=== PATIENT | male | born 1990 | race Caucasian/White ===

== ENCOUNTER → 2019-06-22 | Emergency (ER) | payer SELFPAY ==
[~2019-06-22] VITALS: Ht 172.7 cm; Wt 72.6 kg
[~2019-06-22] MED LIST: CYCLOBENZAPRINE10 MG PO
--- OUTSIDE RECORDS SUMMARY | ~2019-06-22 | XMS | Clinical Summary ---
Demographics + + + | Address | [address] | | | [place] [address] | + + + | Home Phone | | + + + | Preferred Language | Unknown | + + + | Marital Status | Single | + + + | Worship Affiliation | Unknown | + + + | Race | Unknown | + + + | Ethnic Group | Unknown | + + + Author + + + | Author | [facility] | | | and [place] | + + + | Organization | [facility] | | | and [place] | + + + | Address | Unknown | + + + | Phone | Unavailable | + + + Support + + +---------+ + | Name | Relationship | Address | Phone | + + +---------+ + | CEE FOSTER | ECON | Unknown | | + + +---------+ + Care Team Providers + +------+ + | Care Campus Dean Name | Role | Phone | + [...]
--- OUTSIDE RECORDS SUMMARY | ~2019-06-22 | XMS | Clinical Summary ---
Demographics + + + | Address | [address] | | | [place] [address] | + + + | Home Phone | | + + + | Preferred Language | Unknown | + + + | Marital Status | Single | + + + | Roman Catholic Affiliation | Unknown | + + + | Race | Unknown | + + + | Ethnic Group | Unknown | + + + Author + + + | Author | [facility] | | | and [place] | + + + | Organization | [facility] | | [...] Team Providers + +------+ + | Care Voltmeter Operator Name | Role | Phone | [...]
== END ==
LOC: ED 22:21
DX: S01.81XA Laceration without foreign body of other part of head, initial encounter (principal); V00.131A Fall from skateboard, initial encounter; F17.200 Nicotine dependence, unspecified, uncomplicated
CPT/HCPCS: 12001; 90471; 90715; 99283

== ENCOUNTER 2019-07-01 21:41 | Emergency (ER) | payer SELFPAY ==
[~2019-07-01] VITALS: Ht 172.7 cm; Wt 72.6 kg
--- OUTSIDE RECORDS SUMMARY | ~2019-07-01 | XMS | Encounter Summary ---
Demographics + + + | Address | [address] | | | [place] [address] | + + + | Home Phone | | + + + | Preferred Language | Unknown | + + + | Marital Status | Single | + + + | Mormon Affiliation | Unknown | + + + | Race | Unknown | + + + | Ethnic Group | Unknown | + + + Author + + + | Author | [facility] | | | and [place] | + + + | Organization | [facility] | | | and [place] | + + + | Address | Unknown | + + + | Phone | Unavailable | + + + Support + + +---------+ + | Name | Relationship | Address | Phone | + + +---------+ + | Suzan Ferreira | ECON | Unknown | | + + +---------+ + Care Team Providers + +------+ + | Care Glazier Artist Name | Role | Phone | + +------+ + PCP | Unavailable | + +------+ + Encounter Details +--------+ + + + + | Date | Type | Department | Care Team | Description | +--------+ + + + + | 05/03/ | Hospital | [facility] | Steve Hansen, | | | 2002 - | Encounter | FAMILY EMERGENCY | [address] | | | | [place] [address] | [facility] | | | 05/04/ | | [facility] | [place] [address] | | | 2002 | | [place] | [phone] | | | | | [address] | | | | | | [phone] | | | +--------+ + + + + Social History + +-------+ +--------+------+ | Tobacco Use | Types | Packs/Day | Years | Date | | | | | Used | | + +-------+ +--------+------+ | Never Assessed | | | | | + +-------+ +--------+------+ + + + | Sex Assigned at | Date Recorded | | | | + + + | Not on file | | + + + + + + + | Job Start Date | Occupation | Industry | + + + + | Not on file | Not on file | Not on file | + + + + + + + + | Travel History | Travel Start | Travel End | + + + + + + | No recent travel history available. | + + documented as of this encounter Plan of Treatment Not on filedocumented as of this encounter Visit Diagnoses Not on filedocumented in this encounter"
--- OUTSIDE RECORDS SUMMARY | ~2019-07-01 | XMS | Encounter Summary ---
Demographics + + + | Address | [address] | | | [place] [address] | + + + | Home Phone | | + + + | Preferred Language | Unknown | + + + | Marital Status | Single | + + + | Jew Affiliation | Unknown | + + + | Race | Unknown | + + + | Ethnic Group | Unknown | + + + Author + + + | Author | [facility] | | | and [place] | + + + | Organization | [facility] | | | and [...] Team Providers + +------+ + | Care Explosives Detonator Name | Role | Phone | + +------+ + PCP | Unavailable | + +------+ + Encounter Details +--------+ + + + + | Date | Type | Department | Care Team | Description | +--------+ + + + + | 08/09/ | Hospital | [facility] | Alia Cazares | | | 2001 | Encounter | [facility] | MD [address] | | | | | GENERIC CONV DEPT | [address] | | | | | [address] | [place] [address] | | | | | [place] | [phone] | | | | | [address] | | | | | | [phone] | | | +--------+ + + + [...]
--- OUTSIDE RECORDS SUMMARY | ~2019-07-01 | XMS | Encounter Summary ---
Demographics + + + | Address | [address] | | | [place] [address] | + + + | Home Phone | | + + + | Preferred Language | Unknown | + + + | Marital Status | Single | + + + | Nondenominational Affiliation | Unknown | + + + | Race | Unknown | + + + | Ethnic Group | Unknown | + + + Author + + + | Author | [facility] | | | and [place] | + + + | Organization | [facility] | | | and [...] Team Providers + +------+ + | Care Funds Transfer Clerk Name | Role | Phone | + +------+ + PCP | Unavailable | + +------+ + Encounter Details +--------+ + + + + | Date | Type | Department | Care Team | Description | +--------+ + + + + | 12/22/ | Hospital | [facility] | Dave Sarabia, | | | 2005 | Encounter | FAMILY EMERGENCY | MD [address] | | | | | [place] [address] | [place] [address] | | | | | [place] | [phone] | | | | | [place] | | | | | | [address] | | | | | | [phone] | | | +--------+ + + + [...]
--- OUTSIDE RECORDS SUMMARY | ~2019-07-01 | XMS | Encounter Summary ---
Demographics + + + | Address | [address] | | | [place] [address] | + + + | Home Phone | | + + + | Preferred Language | Unknown | + + + | Marital Status | Single | + + + | Confucianism Affiliation | Unknown | + + + | Race | Unknown | + + + | Ethnic Group | Unknown | + + + Author + + + | Author | [facility] | | | and [place] | + + + | Organization | [facility] | | | and [...] Team Providers + +------+ + | Care Buzzsaw Operator Name | Role | Phone | + +------+ + PCP | Unavailable | + +------+ + Encounter Details +--------+ + + + + | Date | Type | Department | Care Team | Description | +--------+ + + + + | 01/15/ | Hospital | [facility] | Cortes Ervin MD | | | 1996 | Encounter | [facility] | [address] [facility] | | | | | CENTER [address] [place] | | | | | [place] | [address] | | | | | [place] | | | | | | [address] | | | | | | [phone] | | | +--------+ + + + [...]
--- OUTSIDE RECORDS SUMMARY | ~2019-07-01 | XMS | Encounter Summary ---
Demographics + + + | Address | [address] | | | [place] [address] | + + + | Home Phone | | + + + | Preferred Language | Unknown | + + + | Marital Status | Single | + + + | Judaism Affiliation | Unknown | + + + | Race | Unknown | + + + | Ethnic Group | Unknown | + + + Author + + + | Author | [facility] | | | and [place] | + + + | Organization | [facility] | | [...] Team Providers + +------+ + | Care Detention Sergeant Name | Role | Phone | + +------+ + PCP | Unavailable | + +------+ + Encounter Details +--------+ + + + + | Date | Type | Department | Care Team | Description | +--------+ + + + + | 01/03/ | Hospital | [facility] | Raz Amador | | | 2005 | Encounter | FAMILY EMERGENCY | MD [address] | | | | | [place] [address] | [facility] | | | | | [facility] | [address] [place] | | | | | [place] | [address] | | | | | [address] | [phone] | | | | | [phone] | | | +--------+ + + + [...]
--- OUTSIDE RECORDS SUMMARY | ~2019-07-01 | XMS | Encounter Summary ---
Demographics + + + | Address | [address] | | | [place] [address] | + + + | Home Phone | | + + + | Preferred Language | Unknown | + + + | Marital Status | Single | + + + | Caodaism Affiliation | Unknown | + + + | Race | Unknown | + + + | Ethnic Group | Unknown | + + + Author + + + | Author | [facility] | | | and [place] | + + + | Organization | [facility] | | [...] Team Providers + +------+ + | Care Nurse Epidemiologist Name | Role | Phone | + +------+ + PCP | Unavailable | + +------+ + Encounter Details +--------+ + + + + | Date | Type | Department | Care Team | Description | +--------+ + + + + | 06/03/ | Hospital | [facility] | Raz Amador | | | 2005 | Encounter | FAMILY EMERGENCY | MD [address] | | | | | [place] [address] | [facility] | | | | | [facility] | [address] [place] | | | | | [place] | [address] | | | | | [address] | [phone] | | | | | [phone] | | | +--------+ + + + [...]
--- OUTSIDE RECORDS SUMMARY | ~2019-07-01 | XMS | Encounter Summary ---
Demographics + + + | Address | [address] | | | [place] [address] | + + + | Home Phone [...] + + + | Author | [facility] | | | and [place] | + + + | Organization | [facility] | | | [...] Team Providers + +------+ + | Care Neurology Epilepsy Physician Name | Role | Phone | + [...] [address] | | | | | [place] [address] | [facility] | | | | | [facility] | [address] [place] | | | | | [place] | [address] | | | | | [address] | [phone] | | | | | [phone] | | | +--------+ + + + [...]
--- OUTSIDE RECORDS SUMMARY | ~2019-07-01 | XMS | Encounter Summary ---
Demographics + + + | Address | [address] | | | [place] [address] | + + + | Home Phone | | + + + | Preferred Language | Unknown | + + + | Marital Status | Single | + + + | Mormonism Affiliation | Unknown | + + + | Race | Unknown | + + + | Ethnic Group | Unknown | + + + Author + + + | Author | [facility] | | | and [place] | + + + | Organization | [facility] | | [...] Providers + +------+ + | Care Funds Development Director Name | Role | Phone | + +------+ + PCP | Unavailable | + +------+ + Encounter Details +--------+ + + + + | Date | Type | Department | Care Team | Description | +--------+ + + + + | 09/06/ | Hospital | [facility] | Fantasma Mclaughlin MD | | | 1997 | Encounter | [facility] | [address] [facility] | | | | | CONVERSION | [address] | | | | | DEPART[address] | [place] [address] | | | | | [place] | [phone] | | | | | [place] | | | | | | [address] | | | | | | [phone] | | | +--------+ + + + [...]
--- OUTSIDE RECORDS SUMMARY | ~2019-07-01 | XMS | Encounter Summary ---
Demographics + + + | Address | [address] | | | [place] [address] | + + + | Home Phone | | + + + | Preferred Language | Unknown | + + + | Marital Status | Single | + + + | Anglican Affiliation | Unknown | + + + | Race | Unknown | + + + | Ethnic Group | Unknown | + + + Author + + + | Author | [facility] | | | and [place] | + + + | Organization | [facility] | | | [...] Team Providers + +------+ + | Care Management Trainee Program Stores Name | Role | Phone | + +------+ + PCP | Unavailable | + +------+ + Encounter Details +--------+ + + + + | Date | Type | Department | Care Team | Description | +--------+ + + + + | 08/09/ | Hospital | [facility] | Alia Cazares | | | 2001 | Encounter | [facility] MED CTR | MD [address] | | | | | GENERIC CONV DEPT | [address] | | | | | [address] | [place] [address] | | | | | [place] | [phone] | | | | | [address] | | | | | | [phone] | | | +--------+ + + + [...]
--- OUTSIDE RECORDS SUMMARY | ~2019-07-01 | XMS | Encounter Summary ---
Demographics + + + | Address | [address] | | | [place] [address] | + + + | Home Phone | | + + + | Preferred Language | Unknown | + + + | Marital Status | Single | + + + | Anabaptist Affiliation | Unknown | + + + | Race | Unknown | + + + | Ethnic Group | Unknown | + + + Author + + + | Author | [facility] | | | and [place] | + + + | Organization | [facility] | | [...] Team Providers + +------+ + | Care Cad Librarian Name | Role | Phone | + +------+ + PCP | Unavailable | + +------+ + Encounter Details +--------+ + + + + | Date | Type | Department | Care Team | Description | +--------+ + + + + | 01/15/ | Hospital | [facility] | Cortes Ervin MD | | | 1996 | Encounter | [facility] | [address] [facility] | | | | | CENTER [address] [place] | | | | | [place] | [address] | | | | | [place] | | | | | | [address] | | | | | | [phone] | | | +--------+ + + + [...]
--- OUTSIDE RECORDS SUMMARY | ~2019-07-01 | XMS | Encounter Summary ---
Demographics + + + | Address | [address] | | | [place] [address] | + + + | Home Phone | | + + + | Preferred Language | Unknown | + + + | Marital Status | Single | + + + | Jehovah'S Witness Affiliation | Unknown | + + + | Race | Unknown | + + + | Ethnic Group | Unknown | + + + Author + + + | Author | [facility] | | | and [place] | + + + | Organization | [facility] | | | [...] Team Providers + +------+ + | Care Office Assistant Receptionist Name | Role | Phone | + +------+ + PCP | Unavailable | + +------+ + Encounter Details +--------+ + + + + | Date | Type | Department | Care Team | Description | +--------+ + + + + | 11/07/ | Hospital | [facility] | Fantasma Mclaughlin MD | | | 2001 | Encounter | [facility] [address] | [address] [facility] | | | | | [place] | [address] | | | | | [place] | [place] [address] | | | | | [address] | [phone] | | | | | [phone] | | | +--------+ + + + [...]
--- OUTSIDE RECORDS SUMMARY | ~2019-07-01 | XMS | Encounter Summary ---
Demographics + + + | Address | [address] | | | [place] [address] | + + + | Home Phone | | + + + | Preferred Language | Unknown | + + + | Marital Status | Single | + + + | Mormon Affiliation | Unknown | + + + | Race | Unknown | + + + | Ethnic Group | Unknown | + + + Author + + + | Author | [facility] | | | and [place] | + + + | Organization | [facility] | | [...] Team Providers + +------+ + | Care Energy Risk Management Analyst Name | Role | Phone | + +------+ + PCP | Unavailable | + +------+ + Encounter Details +--------+ + + + + | Date | Type | Department | Care Team | Description | +--------+ + + + + | 01/05/ | Hospital | [facility] | Fantasma Mclaughlin MD | | | 1998 | Encounter | [facility] [address] | [address] [facility] | | | | | [place] | [address] | | | | | [place] | [place] [address] | | | | | [address] | [phone] | | | | | [phone] | | | +--------+ + + + [...]
--- OUTSIDE RECORDS SUMMARY | ~2019-07-01 | XMS | Encounter Summary ---
Demographics + + + | Address | [address] | | | [place] [address] | + + + | Home Phone | | + + + | Preferred Language | Unknown | + + + | Marital Status | Single | + + + | Adventism Affiliation | Unknown | + + + | Race | Unknown | + + + | Ethnic Group | Unknown | + + + Author + + + | Author | [facility] | | | and [place] | + + + | Organization | [facility] | | | [...] Team Providers + +------+ + | Care Slasher Runner Name | Role | Phone | + +------+ + PCP | Unavailable | + +------+ + Encounter Details +--------+ + + + + | Date | Type | Department | Care Team | Description | +--------+ + + + + | 05/17/ | Hospital | [facility] | Wilmer Burns MD | | | 1999 | Encounter | FAMILY EMERGENCY | [address] | | | | | [place] [address] | [place] | | | | | [place] | [address] | | | | | [place] | | | | | | [address] | | | | | | [phone] | | | +--------+ + + + [...]
--- OUTSIDE RECORDS SUMMARY | ~2019-07-01 | XMS | Encounter Summary ---
Demographics + + + | Address | [address] | | | [place] [address] | + + + | Home Phone | | + + + | Preferred Language | Unknown | + + + | Marital Status | Single | + + + | Methodist Affiliation | Unknown | + + + | Race | Unknown | + + + | Ethnic Group | Unknown | + + + Author + + + | Author | [facility] | | | and [place] | + + + | Organization | [facility] | | | and [...] Team Providers + +------+ + | Care Dining Car Conductor Name | Role | Phone | + +------+ + PCP | Unavailable | + +------+ + Encounter Details +--------+ + + + + | Date | Type | Department | Care Team | Description | +--------+ + + + + | 06/06/ | Hospital | [facility] | River Carrillo, | | | 2002 - | Encounter | FAMILY GENERIC | MD [address] | | | | | CONVERSION | [address] | | | 06/21/ | | DEPARTMENT [address] | [place] [address] | | | [address] | | [address] | [phone] | | | | | [place] | | | | | | [address] | | | | | | [phone] | | | +--------+ + + + [...]
--- OUTSIDE RECORDS SUMMARY | ~2019-07-01 | XMS | Encounter Summary ---
Demographics + + + | Address | [address] | | | [place] [address] | + + + | Home Phone [...] Team Providers + +------+ + | Care Legal Support Specialist Name | Role | Phone | + +------+ + PCP | Unavailable | + +------+ + Encounter Details +--------+ + + + + | Date | Type | Department | Care Team | Description | +--------+ + + + + | 10/31/ | Hospital | [facility] | [place], | | | 2010 | Encounter | [facility] | [address] | | | | | [address] [address] | [address] | | | | | [place] | [facility] | | | | | [place] | [address] | | | | | [address] | | | | | | [phone] | | | +--------+ + + + [...] Not on filedocumented as of this encounter Procedures + +--------+ + + + | Procedure Name | Priori | Date/Time | Associated Diagnosis | Comments | | | ty | | | | + +--------+ + + + | COMPREHENSIVE | Routin | 10/31/2010 | | Results for this | | METABOLIC PANEL, | e | 3:35 PM | | procedure are in the | | PART 2 | | PST | | results section. | + +--------+ + + + | CBC WITH | Routin | 10/31/2010 | | Results for this | | DIFFERENTIAL | e | 3:35 PM | | procedure are in the | | | | PST | | results section. | + +--------+ + + + | LIPASE | Routin | 10/31/2010 | | Results for this | | | e | 3:35 PM | | procedure are in the | | | | PST | | results section. | + +--------+ + + + documented in this encounter Results Lipase (10/31/2010 3:35 PM PST) + + + + + + | Component | Value | Ref Range | Performed | Pathologist | | | | | At | Signature | + + + + + + | Lipase | 107Comment: NOTE NEW | 70 - 350 U/L | [facility] | | | | [facility] | | [facility] | | | | | | [facility] | | + + + + + + + + | Specimen | + + | | + + + + + + + | Performing | Address | City/State/Zipcode | Phone Number | | Organization | | | | + + + + + | [facility] | [address] | [place] [address] | | | [facility] | | | | | [facility]ORY | | | | + + + + + | [facility] | | | | | [facility] | | | | + + + + + Comprehensive Metabolic Panel, Part 2 (10/31/2010 3:35 PM PST) + + + + + + | Component | Value | Ref Range | Performed | Pathologist | | | | | At | Signature | + + + + + + | Na | 139 | 135 - 146 | [facility] | | | | mmol/L [facility] | | | | | | [facility] | | + + + + + + | K | 4.2 | 3.6 - 5.2 | [facility] | | | | | mmol/L | [facility] | | | | | | [facility] | | + + + + + + | Cl | 103 | 98 - 109 mmol/L | [facility] | | | | [facility] | | [facility] | | | [facility] | | + + + + + + | CO2 | 28 | 21 - 32 mmol/L | [facility] | | | [facility] | | | | | | [facility] | | + + + + + + | Glucose | 102 (H)Comment: Impaired | 65 - 99 mg/dL | [facility] | | | | fasting glucose: 100 to | | [facility] | | | | 125 mg/dL. | [facility] | | | | | | [facility]ATORY | | + + + + + + | BUN | 11 | 7 - 23 mg/dL | [facility] | | | [facility] | | | | | | [facility] | | + + + + + + | Creatinine | 0.87 | 0.80 - 1.50 | [facility] | | | | | mg/dL | [facility] | | | | | | [facility] | | + + + + + + | Calcium | 8.7 | 8.5 - 10.5 | [facility] | | | | | mg/dL | [facility] | | | | | | [facility] | | + + + + + + | Total | 8.1 | 6.5 - 8.2 g/dL | [facility] | | | Protein | | | [facility] | | | | | | [facility] | | + + + + + + | Albumin | 3.8 | 3.4 - 5.0 g/dL | [facility] | | | | [facility] | | | | | | [facility] | | + + + + + + | Bilirubin | 0.9 | 0.1 - 1.5 mg/dL | [facility] | | | Total | | | [facility] | | | | | | [facility] | | + + + + + + | Alkaline | 90 | 40 - 135 U/L | [facility] | | | Phosphatase | | | [facility] | | | | | | [facility]ORY | | + + + + + + | AST | 24 | 5 - 40 U/L | [facility] | | | | [facility] | | | | | | [facility] | | + + + + + + | ALT | 45 | 5 - 65 U/L | [facility] | | | | | | [facility] | | + + + + + + | Anion Gap | 8 | 5 - 16 mmol/L | [facility] | | | | | | [facility] | | + + + + + + + + | Specimen | + + | | + + + + + + + | Performing | Address | City/State/Zipcode | Phone Number | | Organization | | | | + + + + + | [facility] | [address] | [place] [address] | | | [facility] | | | | | LABORATORY | | | | + + + + + | [facility] | | | | [facility] | | | | | [facility] | | | | + + + + + CBC with Differential (10/31/2010 3:35 PM PST) + + + + + + | Component | Value | Ref Range | Performed | Pathologist | | | | | At | Signature | + + + + + + | WBC | 10.3 | 4.0 - 11.0 K/uL | [facility] | [facility] | | | [facility] | | + + + + + + | RBC | 4.62 | 4.30 - 5.70 | [facility] | | | | | M/uL | [facility] | | | | | | [facility] | | + + + + + + | Hemoglobin | 14.3 | 13.7 - 16.7 | [facility] | | | | | g/dL | [facility] | | | | | | [facility] | | + + + + + + | Hematocrit | 41.6 | 40.0 - 50.0 % | [facility] | | | [facility] | | [facility] | | | [facility] | | + + + + + + | MCV | 90.2 | 80.0 - 100.0 fL | [facility] | [facility] | [facility] | | | | | | [facility] | | + + + + + + | MCH | 30.9 | 27.0 - 34.0 pg | [facility] | | | [facility] | | | | | | [facility] | | + + + + + + | MCHC | 34.3 | 32.0 - 35.5 | [facility] | | | | | g/dL | [facility] | | | | | | [facility] | | + + + + + + | RDW-CV | 12.6 | 11.0 - 15.0 % | [facility] | | | | [facility] | | | | | | [facility] | | + + + + + + | Platelet | 284 | 150 - 400 K/uL | [facility] | | | Count | | | [facility] | | | [facility] | | [facility] | | + + + + + + | Differentia | Automated | | [facility] | | | l Type | | [facility] | | | | | | [facility] | | + + + + + + | % | 77.5 | 40.0 - 80.0 % | [facility] | | | Neutrophils | | | [facility] | | | | | | [facility] | | + + + + + + | % | 12.9 (L) | 15.0 - 45.0 % | [facility] | | | Lymphocytes | | | [facility] | | | | | | [facility] | | + + + + + + | % Monocytes | 9.4 | 0.0 - 12.0 % | [facility] | | | | [facility] | | | | | | [facility] | | + + + + + + | % | 0.0 | 0 - 7 % | [facility] | | | Eosinophils | | | [facility] | | | | | | [facility] | | + + + + + + | % Basophils | 0.2 | 0 - 2 % | [facility] | | | | [facility] | | | | | | [facility] | | + + + + + + | Absolute | 7.90 (H) | 2.0 - 7.3 K/uL | [facility] | | | Neutrophils | | | [facility] | | | | | | [facility] | | + + + + + + | Absolute | 1.30 | 1.0 - 3.4 K/uL | [facility] | | | Lymphocytes | | | [facility] | | | | | | [facility] | | + + + + + + | Absolute | 1.00 (H) | 0.0 - 0.8 K/uL | [facility] | | | Monocytes | | | [facility] | | | | | | [facility] | | + + + + + + | Absolute | 0.00 | 0.0 - 0.5 K/uL | [facility] | | | Eosinophils | | | [facility] | | | | | | [facility] | | + + + + + + | Absolute | 0.00 | 0.0 - 0.1 K/uL | [facility] | | | Basophils | | | [facility] | | | | | | [facility] | | + + + + + + + + | Specimen | + + | | + + + + + + + | Performing | Address | City/State/Zipcode | Phone Number | | Organization | | | | + + + + + | [facility] | [address] | [place] [address] | | | [facility] | | | | | LAB[facility]ATORY | | | | + + + + + | [facility] | | | | | [facility] | | | | | LAB[facility]ORY | | | | + + + + + documented in this encounter Visit Diagnoses Not on filedocumented in this encounter"
--- OUTSIDE RECORDS SUMMARY | ~2019-07-01 | XMS | Encounter Summary ---
Demographics + + + | Address | [address] | | | [place] [address] | + + + | Home Phone | | + + + | Preferred Language | Unknown | + + + | Marital Status | Single | + + + | Christian Affiliation | Unknown | + + + | Race | Unknown | + + + | Ethnic Group | Unknown | + + + Author + + + | Author | [facility] | | | and [place] | + + + | Organization | [facility] | | | [...] Team Providers + +------+ + | Care Continuous Process Tanner Rotary Drum Name | Role | Phone | + +------+ + PCP | Unavailable | + +------+ + Encounter Details +--------+ + + + + | Date | Type | Department | Care Team | Description | +--------+ + + + + | 10/10/ | Hospital | [facility] | Avinash Mcgraw, | | | 2002 | Encounter | [facility] EM[facility]GENCY | [address] | | | | | [place] [address] | [facility] | | | | | [facility] | [place] [address] | | | | | [place] | [phone] | | | | | [address] | | | | | | [phone] | | | +--------+ + + + [...]
--- OUTSIDE RECORDS SUMMARY | ~2019-07-01 | XMS | Encounter Summary ---
Demographics + + + | Address | [address] | | | [place] [address] | + + + | Home Phone | | + + + | Preferred Language | Unknown | + + + | Marital Status | Single | + + + | Pentecostal Affiliation | Unknown | + + + | Race | Unknown | + + + | Ethnic Group | Unknown | + + + Author + + + | Author | [facility] | | | and [place] | + + + | Organization | [facility] | | | [...] Team Providers + +------+ + | Care Container Finisher Name | Role | Phone | + [...] [address] | | | | | [place] [address] | [facility] | | | 05/04/ | | [facility] | [place] [address] | | | 2002 | | [place] | [phone] | | | | | [address] | | | | | | [phone] | | | +--------+ + + + [...]
--- OUTSIDE RECORDS SUMMARY | ~2019-07-01 | XMS | Encounter Summary ---
Demographics + + + | Address | [address] | | | [place] [address] | + + + | Home Phone | | + + + | Preferred Language | Unknown | + + + | Marital Status | Single | + + + | Mu-Ism Affiliation | Unknown | + + + | Race | Unknown | + + + | Ethnic Group | Unknown | + + + Author + + + | Author | [facility] | | | and [place] | + + + | Organization | [facility] | | | [...] Team Providers + +------+ + | Care Development Scientist Name | Role | Phone | + +------+ + PCP | Unavailable | + +------+ + Encounter Details +--------+ + + + + | Date | Type | Department | Care Team | Description | +--------+ + + + + | 07/06/ | Hospital | [facility] | Pepe Fernandez, | | | 2001 | Encounter | FAM[facility]CHO [address] | [address] | | | | | [facility] | [facility] | | | | | [place] | [address] [place], | | | | | [address] | [place] [address] | | | | | [phone] | [phone] | | | | | | | | +--------+ + + + [...]
--- OUTSIDE RECORDS SUMMARY | ~2019-07-01 | XMS | Clinical Summary ---
Demographics + + + | Address | [address] | | | [place] [address] | + + + | Home Phone | | + + + | Preferred Language | Unknown | + + + | Marital Status | Single | + + + | Sabianist Affiliation | Unknown | + + + | Race | Unknown | + + + | Ethnic Group | Unknown | + + + Author + + + | Author | [facility] | | | and [place] | + + + | Organization | [facility] | | | [...] Team Providers + +------+ + | Care Foundry Process Engineer Name | Role | Phone | + +------+ + PCP | Unavailable | + +------+ + Allergies Not on File Medications Not on file Active Problems Not on file Social History + +-------+ +--------+------+ | Tobacco [...] recent travel history available. | + + Last Filed Vital Signs Not on file Plan of Treatment + + + + + | Health Maintenance | Due Date | Last Done | Comments | + + + + + | Vaccine: | | | | | Dtap/Tdap/Td (1 - | 8 | | | | Tdap) | | | | + + + + + | Vaccine: Influenza | | | | | (#1) | 9 | | | + + + + + Results Not on filefrom Last 3 Months"
--- OUTSIDE RECORDS SUMMARY | ~2019-07-01 | XMS | Encounter Summary ---
Demographics + + + | Address | [address] | | | [place] [address] | + + + | Home Phone | | + + + | Preferred Language | Unknown | + + + | Marital Status | Single | + + + | Scientology Affiliation | Unknown | + + + | Race | Unknown | + + + | Ethnic Group | Unknown | + + + Author + + + | Author | [facility] | | | and [place] | + + + | Organization | [facility] | | | [...] Team Providers + +------+ + | Care Naval Aircrewman Helicopter Name | Role | Phone | + +------+ + PCP | Unavailable | + +------+ + Encounter Details +--------+ + + + + | Date | Type | Department | Care Team | Description | +--------+ + + + + | 09/02/ | Hospital | [facility] | River Carrillo, | | | 2005 - | Encounter | FAM[facility] GENERIC | [place] [address] | | | | | CONVERSION | [address] | | | 09/04/ | | DEPARTMENT [address] | [place] [address] | | | 2005 | | [address] | [phone] | | | | | [place] | | | | | | [address] | | | | | | [phone] | | | +--------+ + + + [...]
--- OUTSIDE RECORDS SUMMARY | ~2019-07-01 | XMS | Encounter Summary ---
Demographics + + + | Address | [address] | | | [place] [address] | + + + | Home Phone | | + + + | Preferred Language | Unknown | + + + | Marital Status | Single | + + + | Anabaptism Affiliation | Unknown | + + + | Race | Unknown | + + + | Ethnic Group | Unknown | + + + Author + + + | Author | [facility] | | | and [place] | + + + | Organization | [facility] | | | [...] Team Providers + +------+ + | Care Television Analyzer Name | Role | Phone | + +------+ + PCP | Unavailable | + +------+ + Encounter Details +--------+ + + + + | Date | Type | Department | Care Team | Description | +--------+ + + + + | 09/06/ | Hospital | [facility] | Fantasma Mclaughlin MD | | | 1997 | Encounter | [facility] | [address] [facility] | | | | | CONVERSION | [address] | | | | | [address]PART[address] | [place] [address] | | | | | [place] | [phone] | | | | | [place] | | | | | | [address] | | | | | | [phone] | | | +--------+ + + + [...]
--- OUTSIDE RECORDS SUMMARY | ~2019-07-01 | XMS | Encounter Summary ---
Demographics + + + | Address | [address] | | | [place] [address] | + + + | Home Phone | | + + + | Preferred Language | Unknown | + + + | Marital Status | Single | + + + | Bahai Affiliation | Unknown | + + + | Race | Unknown | + + + | Ethnic Group | Unknown | + + + Author + + + | Author | [facility] | | | and [place] | + + + | Organization | [facility] | | | and [...] Team Providers + +------+ + | Care Boat Engines Installer Name | Role | Phone | + +------+ + PCP | Unavailable | + +------+ + Encounter Details +--------+ + + + + | Date | Type | Department | Care Team | Description | +--------+ + + + + | 06/09/ | Hospital | [facility] | Rell Fulton MD | | | 2001 | Encounter | FAM[facility] EM[facility]GENCY | [address] | | | | | [place] [address] | [place] [address] | | | | | [address] | [phone] | | | | | [place] | | | | | | [address] | | | | | | [phone] | | | +--------+ + + + [...]
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
--- OUTSIDE RECORDS SUMMARY | ~2019-07-01 | XMS | Encounter Summary ---
Demographics + + + | Address | [address] | | | [place] [address] | + + + | Home Phone | | + + + | Preferred Language | Unknown | + + + | Marital Status | Single | + + + | Restorationism Affiliation | Unknown | + + + [...] Team Providers + +------+ + | Care Internal Audit Consultant Name | Role | Phone | + [...] EMERGENCY | | | | | | [place] [address] | | | | | | [facility] | | | | | | [place] | | | | | | [address] | | | | | | [phone] | | | +--------+ + + + [...]
--- OUTSIDE RECORDS SUMMARY | ~2019-07-01 | XMS | Encounter Summary ---
Demographics + + + | Address | [address] | | | [place] [address] | + + + | Home Phone | | + + + | Preferred Language | Unknown | + + + | Marital Status | Single | + + + | Mandaeism Affiliation | Unknown | + + + | Race | Unknown | + + + | Ethnic Group | Unknown | + + + Author + + + | Author | [facility] | | | and [place] | + + + | Organization | [facility] | | | [...] Team Providers + +------+ + | Care Enterprise Software Developer Name | Role | Phone | + +------+ + PCP | Unavailable | + +------+ + Encounter Details +--------+ + + + + | Date | Type | Department | Care Team | Description | +--------+ + + + + | 07/05/ | Hospital | [facility] | Dave Sarabia, | | | 2001 | Encounter | FAMILY EMERGENCY | [address] | | | | | [place] [address] | [place] [address] | | | | | [place] | [phone] | | | | | [place] | | | | | | [address] | | | | | | [phone] | | | +--------+ + + + [...]
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
--- OUTSIDE RECORDS SUMMARY | ~2019-07-01 | XMS | Encounter Summary ---
Demographics + + + | Address | [address] | | | [place] [address] | + + + | Home Phone | | + + + | Preferred Language | Unknown | + + + | Marital Status | Single | + + + | Amish Affiliation | Unknown | + + + | Race | Unknown | + + + | Ethnic Group | Unknown | + + + Author + + + | Author | [facility] | | | and [place] | + + + | Organization | [facility] | | | [...] Team Providers + +------+ + | Care Senior Recruitment Consultant Name | Role | Phone | [...] [address] | | | | | [place] [address] | [place] [address] | | | | | [place] | [phone] | | | | | [place] | | | | | | [address] | | | | | | [phone] | | | +--------+ + + + [...]
--- OUTSIDE RECORDS SUMMARY | ~2019-07-01 | XMS | Encounter Summary ---
Demographics + + + | Address | [address] | | | [place] [address] | + + + | Home Phone | | + + + | Preferred Language | Unknown | + + + | Marital Status | Single | + + + | Holiness Affiliation | Unknown | + + + | Race | Unknown | + + + | Ethnic Group | Unknown | + + + Author + + + | Author | [facility] | | | and [place] | + + + | Organization | [facility] | | [...] Team Providers + +------+ + | Care Human Resources Manager Name | Role | Phone | + +------+ + PCP | Unavailable | + +------+ + Encounter Details +--------+ + + + + | Date | Type | Department | Care Team | Description | +--------+ + + + + | 12/11/ | Hospital | [facility] | Ricky Sumner MD | | | 2003 | Encounter | [facility] | [address] | | | | | [address] [place] [address] | [place] | | | | | [place] | [address] | | | | | [place] | | | | | | [address] | | | | | | [phone] | | | +--------+ + + + [...]
--- OUTSIDE RECORDS SUMMARY | ~2019-07-01 | XMS | Encounter Summary ---
Demographics + + + | Address | [address] | | | [place] [address] | + + + | Home Phone | | + + + | Preferred Language | Unknown | + + + | Marital Status | Single | + + + | Hoahaoism Affiliation | Unknown | + + + [...] Team Providers + +------+ + | Care Marketing Project Coordinator Name | Role | Phone | + [...] [address] | | | | | [place] [address] | [place] | | | | | [place] | [address] | | | | | [place] | | | | | | [address] | | | | | | [phone] | | | +--------+ + + + [...]
--- OUTSIDE RECORDS SUMMARY | ~2019-07-01 | XMS | Encounter Summary ---
Demographics + + + | Address | [address] | | | [place] [address] | + + + | Home Phone | | + + + | Preferred Language | Unknown | + + + | Marital Status | Single | + + + | Temple Affiliation | Unknown | + + + | Race | Unknown | + + + | Ethnic Group | Unknown | + + + Author + + + | Author | [facility] | | | and [place] | + + + | Organization | [facility] | | | [...] Team Providers + +------+ + | Care Felt Finisher Name | Role | Phone | + +------+ + PCP | Unavailable | + +------+ + Encounter Details +--------+ + + + + | Date | Type | Department | Care Team | Description | +--------+ + + + + | 03/11/ | Hospital | [facility] | Wilmer Burns MD | | | 2006 | Encounter | [facility] | [address] | | | | | [address] | [place] | | | | | [place] | [address] | | | | | [place] | | | | | | [address] | | | | | | [phone] | | | +--------+ + + + [...]
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
--- OUTSIDE RECORDS SUMMARY | ~2019-07-01 | XMS | Encounter Summary ---
Demographics + + + | Address | [address] | | | [place] [address] | + + + | Home Phone [...] + + + | Author | [facility] | | | and [place] | + + + | Organization | [facility] | | | [...] Team Providers + +------+ + | Care Duct Layer Name | Role | Phone | + [...] [address] | | | | | [place] [address] | [place] [address] | | | | | [place] | [phone] | | | | | [place] | | | | | | [address] | | | | | | [phone] | | | +--------+ + + + [...]
--- OUTSIDE RECORDS SUMMARY | ~2019-07-01 | XMS | Encounter Summary ---
Demographics + + + | Address | [address] | | | [place] [address] | + + + | Home Phone | | + + + | Preferred Language | Unknown | + + + | Marital Status | Single | + + + | Hoahaoism Affiliation | Unknown | + + + | Race | Unknown | + + + | Ethnic Group | Unknown | + + + Author + + + | Author | [facility] | | | and [place] | + + + | Organization | [facility] | | | [...] Team Providers + +------+ + | Care Field Artillery Crewmember Name | Role | Phone | + [...] [address] | | | | | [place] [address] | [place] [address] | | | | | [place] | [phone] | | | | | [place] | | | | | | [address] | | | | | | [phone] | | | +--------+ + + + [...]
--- OUTSIDE RECORDS SUMMARY | ~2019-07-01 | XMS | Encounter Summary ---
Demographics + + + | Address | [address] | | | [place] [address] | + + + | Home Phone | | + + + | Preferred Language | Unknown | + + + | Marital Status | Single | + + + | Hoahaoism Affiliation | Unknown | + + + | Race | Unknown | + + + | Ethnic Group | Unknown | + + + Author + + + | Author | [facility] | | | and [place] | + + + | Organization | [facility] | | | and [...] Team Providers + +------+ + | Care Book Shelver Name | Role | Phone | + [...] [address] | | | | | [place] [address] | [facility] | | | | | [facility] | [place] [address] | | | | | [place] | [phone] | | | | | [address] | | | | | | [phone] | | | +--------+ + + + [...]
--- OUTSIDE RECORDS SUMMARY | ~2019-07-01 | XMS | Encounter Summary ---
Demographics + + + | Address | [address] | | | [place] [address] | + + + | Home Phone | | + + + | Preferred Language | Unknown | + + + | Marital Status | Single | + + + | Jain Affiliation | Unknown | + + + | Race | Unknown | + + + | Ethnic Group | Unknown | + + + Author + + + | Author | [facility] | | | and [place] | + + + | Organization | [facility] | | [...] Team Providers + +------+ + | Care Product Tester Name | Role | Phone | + [...] 06/21/ | | DEPARTMENT [address] | [place] [address] | | | [address] | | [address] | [phone] | | | | | [place] | | | | | | [address] | | | | | | [phone] | | | +--------+ + + + [...]
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
--- OUTSIDE RECORDS SUMMARY | ~2019-07-01 | XMS | Encounter Summary ---
Demographics + + + | Address | [address] | | | [place] [address] | + + + | Home Phone [...] Providers + +------+ + | Care Marketing Communication Manager Name | Role | Phone | + +------+ + PCP | Unavailable | + +------+ + Encounter Details +--------+ + + + + | Date | Type | Department | Care Team | Description | +--------+ + + + + | 01/05/ | Hospital | [address] | Fantasma Mclaughlin MD | | | 1998 | Encounter | [address] | [address] [facility] | | | | | [place] | [address] | | | | | [place] | [place] [address] | | | | | [address] | [phone] | | | | | [phone] | | | +--------+ + + + [...]
--- OUTSIDE RECORDS SUMMARY | ~2019-07-01 | XMS | Encounter Summary ---
Demographics + + + | Address | [address] | | | [place] [address] | + + + | Home Phone | | + + + | Preferred Language | Unknown | + + + | Marital Status | Single | + + + | Scientologist Affiliation | Unknown | + + + | Race | Unknown | + + + | Ethnic Group | Unknown | + + + Author + + + | Author | [facility] | | | and [place] | + + + | Organization | [facility] | | | and [...] Team Providers + +------+ + | Care Behavioral Interventionist Name | Role | Phone | + +------+ + PCP | Unavailable | + +------+ + Encounter Details +--------+ + + + + | Date | Type | Department | Care Team | Description | +--------+ + + + + | 11/14/ | Hospital | [address] | Fantasma Mclaughlin MD | | | 2008 | Encounter | [address] | [address] [facility] | | | | | [place] | [address] | | | | | [place] | [place] [address] | | | | | [address] | [phone] | | | | | [phone] | | | +--------+ + + + [...] + + + | Exam Performed Location: [facility] | MISCELANIOUS | | FACIAL BONES [...] 06/16/2013 8:16 AM PDT Exam Performed [facility] MANDIBLE FILMSCLINICAL INFORMATION:Left facial [...] + | MISCELLANEOUS LAB | | | [phone] | + +---------+ + + | MISCELANIOUS LAB | | | [phone] | + +---------+ + + XR Facial Bones 3 + Vw (11/14/2008 4:05 PM PDT) + + | Specimen | + + | | + + + + + | Narrative | Performed At | + + + | Exam Performed Location: [facility] | MISCELANIOUS | | FACIAL BONES [...] 06/16/2013 8:05 AM PDT Exam Performed [facility] MANDIBLE FILMSCLINICAL INFORMATION:Left facial [...] + | MISCELLANEOUS LAB | | | [phone] | + +---------+ + + | MISCELANIOUS LAB | | | [phone] | + +---------+ + + documented in this encounter Visit Diagnoses Not on filedocumented in this encounter"
--- OUTSIDE RECORDS SUMMARY | ~2019-07-01 | XMS | Encounter Summary ---
Demographics + + + | Address | [address] | | | [place] [address] | + + + | Home Phone [...] Team Providers + +------+ + | Care Sales Support Advisor Name | Role | Phone | + [...] | | | | | [place] | [address] | | | | | [place] | | | | | | [address] | | | | | | [phone] | | | +--------+ + + + [...]
--- OUTSIDE RECORDS SUMMARY | ~2019-07-01 | XMS | Encounter Summary ---
Demographics + + + | Address | [address] | | | [place] [address] | + + + | Home Phone | | + + + | Preferred Language | Unknown | + + + | Marital Status | Single | + + + | Anglican Affiliation | Unknown | + + + | Race | Unknown | + + + | Ethnic Group | Unknown | + + + Author + + + | Author | [facility] | | | and [place] | + + + | Organization | [facility] | | | [...] Team Providers + +------+ + | Care Director Supply Name | Role | Phone | + [...] 09/04/ | | DEPARTMENT [address] | [place] [address] | | | [address] | | [address] | [phone] | | | | | [place] | | | | | | [address] | | | | | | [phone] | | | +--------+ + + + [...]
--- OUTSIDE RECORDS SUMMARY | ~2019-07-01 | XMS | Clinical Summary ---
Demographics + + + | Address | [address] [facility] [address] | | | [place] [address] | + + + | Home Phone | | + + + | Preferred Language | Unknown | + + + | Marital Status | Single | + + + | Judaism Affiliation | Unknown | + + + | Race | Unknown | + + + | Ethnic Group | Unknown | + + + Author + + + | Author | [facility] | | | and [place] | + + + | Organization | [facility] | | [...] Team Providers + +------+ + | Care Valuation Consultant Name | Role | Phone | [...]
--- OUTSIDE RECORDS SUMMARY | ~2019-07-01 | XMS | Encounter Summary ---
Demographics + + + | Address | [address] | | | [place] [address] | + + + | Home Phone | | + + + | Preferred Language | Unknown | + + + | Marital Status | Single | + + + | Hindu Affiliation | Unknown | + + + | Race | Unknown | + + + | Ethnic Group | Unknown | + + + Author + + + | Author | [facility] | | | and [place] | + + + | Organization | [facility] | | | [...] Team Providers + +------+ + | Care Industrial Electrical Technician Name | Role | Phone | + [...] | [address] | [address] [facility] | | | | | [place] | [address] | | | | | [place] | [place] [address] | | | | | [address] | [phone] | | | | | [phone] | | | +--------+ + + + [...]
--- OUTSIDE RECORDS SUMMARY | ~2019-07-01 | XMS | Encounter Summary ---
Demographics + + + | Address | [address] | | | [place] [address] | + + + | Home Phone | | + + + | Preferred Language | Unknown | + + + | Marital Status | Single | + + + | Taoist Affiliation | Unknown | + + + [...] Team Providers + +------+ + | Care Concrete Placement Equipment Operator Name | Role | Phone | [...] [address] | | | | | [facility] | [facility] | | | | | [place] | [address] [place], | | | | | [address] | [place] [address] | | | | | [phone] | [phone] | | | | | | | [...]
--- OUTSIDE RECORDS SUMMARY | ~2019-07-01 | XMS | Encounter Summary ---
Demographics + + + | Address | [address] | | | [place] [address] | + + + | Home Phone | | + + + | Preferred Language | Unknown | + + + | Marital Status | Single | + + + | Yarsani Affiliation | Unknown | + + + | Race | Unknown | + + + | Ethnic Group | Unknown | + + + Author + + + | Author | [facility] | | | and [place] | + + + | Organization | [facility] | | | and [...] Team Providers + +------+ + | Care Straight Line Edger Name | Role | Phone | + [...] [address] | | | | | [address] | [facility] | | | | | [facility] | [address] [place] | | | | | [place] | [address] | | | | | [address] | [phone] | | | | | [phone] | | | +--------+ + + + [...]
--- OUTSIDE RECORDS SUMMARY | ~2019-07-01 | XMS | Encounter Summary ---
Demographics + + + | Address | [address] | | | [place] [address] | + + + | Home Phone | | + + + | Preferred Language | Unknown | + + + | Marital Status | Single | + + + | Episcopalian Affiliation | Unknown | + + + | Race | Unknown | + + + | Ethnic Group | Unknown | + + + Author + + + | Author | [facility] | | | and [place] | + + + | Organization | [facility] | | | [...] Team Providers + +------+ + | Care Sign Board Erector Name | Role | Phone | + [...] [address] | | | | | [address] | [place] | | | | | [place] | [address] | | | | | [place] | | | | | | [address] | | | | | | [phone] | | | +--------+ + + + [...]
--- OUTSIDE RECORDS SUMMARY | ~2019-07-01 | XMS | Encounter Summary ---
Demographics + + + | Address | [address] | | | [place] [address] | + + + | Home Phone | | + + + | Preferred Language | Unknown | + + + | Marital Status | Single | + + + | Faith Affiliation | Unknown | + + + | Race | Unknown | + + + | Ethnic Group | Unknown | + + + Author + + + | Author | [facility] | | | and [place] | + + + | Organization | [facility] | | [...] Team Providers + +------+ + | Care Pulley Worker Name | Role | Phone | + [...] MD [address] | | | | | [address] | | | | | [place] | [facility] | | | | | [place] | [address] | | | | | [address] | | | | | | [phone] | | | +--------+ + + + [...] + + + | [facility] | [address] | [place] [address] | | | [facility] | | [...] + | [facility] | [address] | [place] [address] | | | [facility] | | | | | LABORATORY [...] + | [facility] | [address] | [place] [address] | | | [facility] | | [...]
--- OUTSIDE RECORDS SUMMARY | 2019-07-01 21:44 | XMS ---
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 Cecilio has no Care Guidelines for this patient. Miguel VISIT COUNT (12 MO.) [address] [facility] TOTAL 3 NOTE: Visits indicate total known visits. ED/C VISIT TRACKING (12 MO.) 07/01/2019 21:41 [facility] TYPE: Emergency COMPLAINT: - ABDOMINAL PAIN 06/22/2019 22:22 [facility] TYPE: Emergency COMPLAINT: - HEAD INJURY DIAGNOSES: - Nicotine dependence, unspecified, uncomplicated - Fall from skateboard, initial encounter - Laceration w/o foreign body of oth part of head, init encntr 03/26/2019 16:21 [facility] TYPE: Emergency COMPLAINT: - BACK PAIN DIAGNOSES: - Overexertion from prolonged static or awkward postures, init - Low back pain - Unspecified injury of lower back, initial encounter - Nicotine dependence, unspecified, uncomplicated INPATIENT VISIT TRACKING (12 MO.) No inpatient visits to display in this time frame [email or web address]
== END 2019-07-02 00:27 | disposition home or self-care (01) ==
LOC: ED 21:41
DX: R10.12 Left upper quadrant pain (principal); F17.200 Nicotine dependence, unspecified, uncomplicated
CPT/HCPCS: 74177; 80053; 81001; 83690; 83735; 85025; 99284-25; J2405; Q9967

== ENCOUNTER 2020-08-25 19:03 | Emergency (ER) | payer SELFPAY ==
[~2020-08-25] VITALS: Ht 180.3 cm; Wt 68.6 kg
--- OUTSIDE RECORDS SUMMARY | 2020-08-25 19:06 | XMS ---
PreManage Notification: LANI LOWERY Security Data Collection Specialist Events No recent Security Events currently on file CRITERIA MET - Group Notification CARE PROVIDERS ARNIE Siddiqui [facility] Current PHONE: [phone] Cecilio has no Care Guidelines for this patient. EAnderson VISIT COUNT (12 MO.) 1 Zora Luo 1 PAT [place] TOTAL 2 NOTE: Visits indicate total known visits. ED/UCC VISIT TRACKING (12 MO.) 08/25/2020 19:04 [facility] TYPE: Emergency COMPLAINT: - LT WRIST INJURY 09/02/2019 17:06 Zora SOTO TYPE: Emergency COMPLAINT: - LE-MED CLEARANCE DIAGNOSES: - Nicotine dependence, unspecified, uncomplicated - Alcohol abuse with intoxication, unspecified - Anxiety disorder, unspecified - Blood alcohol level of 20-39 mg/100 ml INPATIENT VISIT TRACKING (12 MO.) No inpatient visits to display in this time frame [email or web address]
== END 2020-08-25 21:05 | disposition home or self-care (01) ==
LOC: ED 19:03
DX: M25.532 Pain in left wrist (principal); M79.642 Pain in left hand; F17.200 Nicotine dependence, unspecified, uncomplicated
CPT/HCPCS: 29125; 73110; 73130; 99283-25

== ENCOUNTER 2022-07-17 07:43 | Emergency (ER) | payer OTHER ==
[~2022-07-17] VITALS: Ht 180.3 cm; Wt 67.2 kg
== END 2022-07-17 12:54 | disposition home or self-care (01) ==
LOC: ED 07:43
DX: K85.90 Acute pancreatitis without necrosis or infection, unspecified (principal); I10 Essential (primary) hypertension; F17.200 Nicotine dependence, unspecified, uncomplicated
CPT/HCPCS: 36415; 74177; 76705; 80053; 81003; 83690; 84478; 85025; 99284-25; Q9967

== ENCOUNTER 2023-05-27 08:24 | Emergency (ER) | payer OTHER ==
[~2023-05-27] VITALS: Ht 180.3 cm; Wt 66.0 kg
[2023-05-27 09:26] VITALS: BP 149/109
== END 2023-05-27 09:33 | disposition left against medical advice (07) ==
LOC: ED 08:24
DX: S60.221A Contusion of right hand, initial encounter (principal); W22.8XXA Striking against or struck by other objects, initial encounter; Z53.29 Procedure and treatment not carried out because of patient's decision for other reasons; I10 Essential (primary) hypertension; F17.200 Nicotine dependence, unspecified, uncomplicated; Z88.0 Allergy status to penicillin; Z88.5 Allergy status to narcotic agent
CPT/HCPCS: 73130; 99283-25

== ENCOUNTER 2024-08-22 18:19 | Emergency (ER) | payer OTHER ==
[~2024-08-22] VITALS: Ht 180.3 cm; Wt 64.9 kg
[~2024-08-22 18:19] MED LIST changes: +ONDANSETRON ODT8 MG PO; +PROTONIX40 MG PO
--- OUTSIDE RECORDS SUMMARY | 2024-08-22 18:26 | XMS ---
PreManage Notification: LANI LOWERY Security Construction Grip Events 1 event(s) in the past 18 months Most recent security events: Elopement at [facility] 05/27/2023 08:25 - Patient eloped with IV in place. - Patient eloped before treatment completed. - Patient with suicidal and/or homicidal ideations eloped. Details: Patient left AMA CRITERIA MET - Group Notification - [facility] - 2 Visits in 30 Days CARE PROVIDERS -, [facility] Dentist: Plant Floor Automation Manager [facility] PHONE: [phone] -Carmelina- Dentist: Plant Floor Automation Manager [facility] PHONE: [phone] CARMEL[facility] PRIMARY Clinic/Center: Primary [facility] PHONE: [phone] Cecilio has no Care Guidelines for this patient. Miguel VISIT COUNT (12 MO.) 3 [facility] NOTE: Visits indicate total known visits. ED/UCC VISIT TRACKING (12 MO.) 08/22/2024 18:20 [facility] TYPE: Emergency COMPLAINT: - VOMITING 08/11/2024 16:39 PAT [facility] TYPE: Emergency COMPLAINT: - WITHDRAWLS 12/09/2023 12:00 [facility] TYPE: Emergency DIAGNOSES: - Alcohol use, unspecified with withdrawal, uncomplicated - alcohol withdrawl - Withdrawal (Alcohol) 08/24/2023 23:30 PAT [facility] TYPE: Emergency COMPLAINT: - VOMITING DIAGNOSES: - Alcoholic gastritis without bleeding - Allergy status to narcotic agent - Allergy status to penicillin - Blood alcohol level of 240 mg/100 ml or more - Essential (primary) hypertension - Gastro-esophageal laceration-hemorrhage syndrome - Hematemesis - Nicotine dependence, unspecified, uncomplicated INPATIENT VISIT TRACKING (12 MO.) No inpatient visits to display in this time frame [id number]
[2024-08-22 20:28] LABS: EOSINOPHILS 1.9 % (0-6); HEMATOCRIT 45.3 % (35.0-50.0); HEMOGLOBIN 15.9 g/dL (12.0-18.0); LYMPHOCYTES 24.7 % (24-44); MCH 34.2 (27-36); MCHC 35.1 g/dl (30-36); MCV 97.5 fl (81-99); MONOCYTES 7.3 % (0-12); NEUTROPHILS 65.1 % (39-80); PLATELET COUNT 62 K/uL (140-440); RBC 4.65 M/ul (4.3-5.7); RDW 13.7 (10.5-15.0)
[2024-08-22] MEDS ORDERED: ondansetron HCL 4 MG/2 ML VIAL IV ONE (20:30)
[2024-08-22 20:38] LABS: ALBUMIN 4.7 g/dL (3.4-5.0); ALBUMIN/GLOBULIN RATIO 1.18 (1.1-2.4); ANION GAP 13.8 (7-21); BILIRUBIN, TOTAL 2.4 ng/dL (0.2-1.0); BUN/CREATININE RATIO 13.92 (6.0-28.6); CALCIUM 9.4 mg/dL (8.5-10.1); CREATININE, SERUM 0.79 mg/dL (0.70-1.30); MAGNESIUM 2.2 mg/dL (1.8-2.4); POTASSIUM 3.8 mmol/L (3.5-5.1); PROTEIN, TOTAL 8.7 g/dL (6.4-8.2)
[2024-08-22] MEDS ORDERED: FOLIC ACID 1 MG/0.2 ML ML ONE (20:40)
[2024-08-22] MEDS ORDERED: LORazepam 2 MG/ML VIAL IV ONE (20:45)
[2024-08-22] MEDS ORDERED: MULTIVITAMINS 10 ML,FOLIC ACID 1 MG,THIAMINE HCL 100 MG in SODIUM CHLORIDE 0.9% 1,000 ML IV SCH (20:45)
[2024-08-22] MEDS ORDERED: METOCLOPRAMIDE HCL 10 MG/2 ML SDV IV ONE (21:30)
[2024-08-22] MEDS ORDERED: CHLORDIAZEPOXID25 MG PO (21:58)
[2024-08-22] MEDS ORDERED: REGLAN10 MG PO (21:58)
[2024-08-22] MEDS ORDERED: ONDANSETRON 4 MG HOME.PACK SL ONE (22:00)
[2024-08-22] MEDS ORDERED: LORazepam 1 MG HOME.PACK PO ONE (22:00)
[2024-08-22 22:15] VITALS: BP 125/78
== END 2024-08-22 22:15 | disposition home or self-care (01) ==
LOC: ED 18:19
PROVIDERS: Emergency Medicine
DX: F10.239 Alcohol dependence with withdrawal, unspecified (principal); K29.70 Gastritis, unspecified, without bleeding; I10 Essential (primary) hypertension; F17.200 Nicotine dependence, unspecified, uncomplicated; Z88.5 Allergy status to narcotic agent
CPT/HCPCS: 36415; 76705; 80053; 83690; 83735; 85025; 96374; 96375; 99284-25; A9270; G0480; J2060; J2405; J2765; J3411; J7030